=== PATIENT | female | born 1990 | race Caucasian/White ===

== ENCOUNTER → 2016-10-18 | Outpatient (CLI) | payer OTHER | LOC: MW.CHOBGYN 14:16 | PROVIDERS: ATTEND Advanced Practice Midwife | DX: Z34.90 Encounter for supervision of normal pregnancy, unspecified, unspecified trimester (principal) | CPT/HCPCS: 36415; 81003; 85025; 86592; 86762; 86803; 86850; 86900; 86901; 87086; 87340; 87389; G0478; 80305 ==

== ENCOUNTER → 2016-11-22 | Outpatient (CLI) | payer OTHER | LOC: MW.CHOBGYN 14:57 | PROVIDERS: ATTEND Advanced Practice Midwife | DX: Z34.90 Encounter for supervision of normal pregnancy, unspecified, unspecified trimester (principal) | CPT/HCPCS: 87491; 87591 ==

== ENCOUNTER → 2016-12-27 | Outpatient (CLI) | payer OTHER ==
--- NOTE | 2016-12-28 08:55 | US ---
Examination: Greater than 14 weeks transabdominal ultrasound with color Doppler and M-mode evaluatio n. HISTORY: FINDINGS: LMP is 08/03/2016 EVALUATION: Posterior placenta with a cephalic lie and grade 1. Visually amniotic fluid is wit hin normal limits. Three-vessel cord is seen. Ventricles are within normal limits. Nuchal fold thickness is 2.1 mm. Four chamber heart is noted. Heart rate is 153 beats per minute. BIOMETRY AND GESTATIONAL AGE: Biparietal diameter 4.4 cm. The abdominal circumference measures 14.8 cm. The femoral length is 3.2 cm with head circumference of 17.2 cm. Gestational age is 19 weeks and 5 days. The expected date of delivery is approximately 05/18/2017. Fetus weight is 322 grams. Overall the fetus is within the 9th p ercentile. Other detail anatomy summarized into PACs sheet after the images. No anatomical anomalies. IMPRESSION: 1. Single active IU with cephalic fetus. Posterior placenta with grade 1, no placenta prev ia. 2. No anomalies are seen. Amniotic fluid appears within normal limits. 3. Overall the fetus is within the 9th percentile.
== END | disposition home or self-care (01) ==
LOC: MW.US 12:29
PROVIDERS: ATTEND Advanced Practice Midwife
DX: Z34.92 Encounter for supervision of normal pregnancy, unspecified, second trimester (principal)
CPT/HCPCS: 76805; 76805-26